=== PATIENT | female | born 1960 | race Caucasian/White ===

== ENCOUNTER 2017-03-16 07:00 | Inpatient (IN) | payer OTHER ==
[2017-03-16 06:16] LABS: HCT 33.1 % (37.0-47.0); HGB 10.9 g/dl (12.5-16.0); MCHC 32.9 g/dL (32.0-36.0); MCV 82.1 fL (78.0-100.0); MPV 9.1 fL (6.0-9.5); RBC 4.03 M/uL (4.20-5.40); RDW 15.1 % (11.5-14.0); WBC 4.6 K/uL (4.0-10.5)
[2017-03-16 06:38] LABS: ALBUMIN 3.7 g/dL (3.5-5.0); BILIRUBIN - TOTAL 0.3 mg/dL (0.1-1.0); POTASSIUM 3.7 mmol/L (3.5-5.1); TOTAL PROTEIN 6.7 g/dL (6.4-8.3)
[2017-03-16 06:46] LABS: INR 1.02 (0.9-1.2); PTT 28.1 SECONDS (23.2-31.4)
--- NOTE | 2017-03-16 22:09 | NUR ---
ORDER FOR PATIENT TO USE HOME TRESIBA INSTEAD OF LEVEMIR, SHE WANTED 60 UNITS TONIGHT INSTEAD OF 80 UNITS PER NORMAL DUE TO NOT EATING WELL TODAY, GIVEN SUCH PER PT, MED IN PENDING SO UNABLE TO CHART THIS
[2017-03-17 07:54] LABS: HCT 25.7 % (37.0-47.0); HGB 8.3 g/dl (12.5-16.0); MCH 27.4 pg (25.0-31.0); MCHC 32.3 g/dL (32.0-36.0); MCV 84.8 fL (78.0-100.0); MPV 9.4 fL (6.0-9.5); RBC 3.03 M/uL (4.20-5.40); RDW 15.5 % (11.5-14.0); WBC 6.7 K/uL (4.0-10.5)
[2017-03-17 08:09] LABS: CREATININE 1.4 mg/dL (0.5-1.0); POTASSIUM 4.3 mmol/L (3.5-5.1)
[2017-03-18 05:50] LABS: HCT 23.7 % (37.0-47.0); HGB 7.6 g/dl (12.5-16.0); MCHC 32.1 g/dL (32.0-36.0); MCV 84.3 fL (78.0-100.0); MPV 9.2 fL (6.0-9.5); RBC 2.81 M/uL (4.20-5.40); RDW 15.4 % (11.5-14.0); WBC 5.3 K/uL (4.0-10.5)
[2017-03-19 03:36] LABS: HCT 25.9 % (37.0-47.0); HGB 8.4 g/dl (12.5-16.0); MCH 27.9 pg (25.0-31.0); MCHC 32.4 g/dL (32.0-36.0); MPV 9.3 fL (6.0-9.5); RBC 3.01 M/uL (4.20-5.40); RDW 15.5 % (11.5-14.0); WBC 5.2 K/uL (4.0-10.5)
[2017-03-19 13:26] LABS: CREATININE 1.1 mg/dL (0.5-1.0); POTASSIUM 3.9 mmol/L (3.5-5.1)
[2017-03-19] MEDS ORDERED: XARELTO10 MG PO (15:00)
[2017-03-19] MEDS ORDERED: PERCOCET 5/3251 TAB PO (15:01)
[2017-03-19] MEDS ORDERED: FEOSOL325 MG PO (15:01)
[2017-03-19] MEDS ORDERED: BACLOFEN 10MG T10 MG PO (15:02)
[2017-03-19] MEDS ORDERED: LOFIBRA160 MG PO (15:03)
[2017-03-19] MEDS ORDERED: JARDIANCE25 MG PO (15:10)
[2017-03-19] MEDS ORDERED: NORVASC5 MG PO (15:10)
[2017-03-19] MEDS ORDERED: VITAMIN B-121000 MC1 PO (15:10)
[2017-03-19] MEDS ORDERED: PROZAC20 MG PO (15:10)
[2017-03-19] MEDS ORDERED: SYNTHROID88 MCG PO (15:10)
[2017-03-19] MEDS ORDERED: LOVAZA1 G1 PO (15:11)
[2017-03-19] MEDS ORDERED: TRESIBA FL100 UNIT/1 SQ (15:11)
[2017-03-19] MEDS ORDERED: TOPROL XL 25MG25 MG PO (15:11)
[2017-03-19] MEDS ORDERED: AMARYL2 MG PO (15:12)
== END 2017-03-19 14:16 | disposition home health service (06) | DRG 467 ==
LOC: FMS 07:00
PROVIDERS: Internal Medicine; ADMIT Orthopaedic Surgery
PROC: 0SWD0JZ Revision of Synthetic Substitute in Left Knee Joint, Open Approach (ICD-10-PCS; principal; 2017-03-16 07:00)
PROC: 30233N1 Transfusion of Nonautologous Red Blood Cells into Peripheral Vein, Percutaneous Approach (ICD-10-PCS; 2017-03-18)
DX: T84.54XA Infection and inflammatory reaction due to internal left knee prosthesis, initial encounter (principal); D62 Acute posthemorrhagic anemia; E86.0 Dehydration
CPT/HCPCS: 36415; 36430; 73560; 80048; 80053; 82962; 85610; 85730; 86850; 86900; 86901; 86922; 87070; 87075; 87205; 87640; 87641; 87900; 88305; 88311; 94010; 94760; 94762; 97110; 97116; 97163; 97166; 97530-GP; 97535; C1713; C1776; J0131; J1100; J1170; J1815; J1885; J2405; J2704; J2710; J2795; J2916; J3010; J3370; P9016